=== PATIENT | male | born 1970 | race Caucasian/White ===

== ENCOUNTER 2020-09-23 21:24 | Emergency (ER) | payer BC ==
[~2020-09-23] VITALS: Ht 165.1 cm; Wt 91.0 kg
[2020-09-23 23:09] VITALS: BP 144/74
== END 2020-09-23 23:20 | disposition home or self-care (01) | DRG 999 ==
LOC: ED 21:24
PROC: 0HQ1XZZ Repair Face Skin, External Approach (ICD-10-PCS; principal; 2020-09-23)
DX: S00.03XA Contusion of scalp, initial encounter (principal); S06.9X9A Unspecified intracranial injury with loss of consciousness of unspecified duration, initial encounter; S01.511A Laceration without foreign body of lip, initial encounter; Y04.2XXA Assault by strike against or bumped into by another person, initial encounter; Y92.007 Garden or yard of unspecified non-institutional (private) residence as the place of occurrence of the external cause